=== PATIENT | male | born 1990 | race African-American/Black ===

== ENCOUNTER 2018-08-14 02:27 | Emergency (ER) | payer SELFPAY ==
[~2018-08-14] VITALS: Ht 175.3 cm; Wt 62.1 kg
[2018-08-14 02:31] VITALS: BP 160/75
[2018-08-14] MEDS ORDERED: IPRATRPIUM/ALBUTEROL 0.5/2.5MG 3 ML NEBU. NEB ONE (02:45)
--- NOTE | 2018-08-14 03:54 | RAD ---
Chest PA and lateral: Reason for examination: Cough The heart size is normal. Mediastinum is unremarkable. Lung powers are clear except for a calcified granuloma at in the mid right lung field. No acute bony abnormalities are seen. Impression: No acute cardiopulmonary disease. Electronically signed by: Mindy Kingston MD (08/14/2018 3:51 AM) [facility] [id number]
[2018-08-14] MEDS ORDERED: PROVENTIL HFA6.7 GM IH (04:08)
--- NOTE | 2018-08-14 04:08 | PHYS DOC ---
Past Medical History Past Medical History: Asthma Past Surgical History: No Surgical History Alcohol Use: None Drug Use: Marijuana Adult General Chief Complaint Chief Complaint: COUGH HPI HPI Patient is a 27-year-old male who presents with complaint of cough and wheezing that has been going on for the last couple of weeks. Patient states he has a history of asthma. He states that he was recently given a prescription for an albuterol inhaler but states that he lost it. He states that this morning the symptoms have gotten worse. He does indicate that his cough is been productive of clear sputum. He denies any fever. He also denies any chest pain. He states his symptoms are worse with exertion and out in the cold air. Review of Systems Review of Systems Constitutional: Denies fever or chills [] Respiratory: Positive cough and wheezing[] Cardiovascular: Denies chest pain[] Musculoskeletal: Denies back pain or joint pain [] Integument: Denies rash or skin lesions [] All other systems were reviewed and found to be within normal limits, except as documented in this note. Current Medications Current Medications Current Medications Medications (Trade) Dose Ordered Sig/Solitario Start Time Stop Time Status Last Admin Dose Admin Albuterol/ Ipratropium (Duoneb) 3 ml 1X ONCE 08/14/18 02:45 08/14/18 02:47 DC 08/14/18 02:52 3 ML Allergies Allergies Allergies Coded Allergies Type Severity Reaction Last Updated Verified No Known Drug Allergies 08/14/18 No Physical Exam Physical Exam Constitutional: Well developed, well nourished, no acute distress, non-toxic appearance. [] HENT: Normocephalic, atraumatic, bilateral external ears normal, oropharynx moist, no oral exudates, nose normal. [] Eyes: PERRLA, EOMI, conjunctiva normal, no discharge. [] Neck: Normal range of motion, no tenderness, supple, no stridor. [] Cardiovascular:Heart rate regular rhythm [] Lungs & Thorax: There are fine inspiratory and expiratory wheezes noted bilaterally[] Skin: Warm, dry, no erythema, no rash. [] Extremities: No tenderness, no cyanosis, no clubbing, ROM intact, no edema. [] Current Patient Data Vital Signs Vital Signs Date Time Temp Pulse Resp B/P (MAP) Pulse Ox O2 Delivery O2 Flow Rate FiO2 10/10/18 02:31 98.4 110 24 160/75 (103) 93 Room Air 98.4 EKG EKG [] Radiology/Procedures Radiology/Procedures [] Impressions: Chest x-ray demonstrates no acute process. Course & Med Decision Making Course & Med Decision Making Pertinent Labs and Imaging studies reviewed. (See chart for details) [] Dragon Disclaimer Dragon Disclaimer This electronic medical record was generated, in whole or in part, using a voice recognition dictation system. Departure Departure Impression: Primary Impression: Asthma exacerbation Disposition: HOME, SELF-CARE Condition: STABLE Referrals: NO PCP (PCP) Patient Instructions: Asthma, Adult Scripts Albuterol Sulfate (PROVENTIL HFA INHALER) 6.7 Gm Hfa.aer.ad 2 PUFF IH PRN Q4HRS PRN for FOR ASTHMA, #1 INHALER 0 Refills Prov: ROMANA LYNNE Jr., DO 08/14/18 Problem Qualifiers Primary Impression: Asthma exacerbation Asthma severity: unspecified severity Asthma persistence: unspecified Qualified Codes: J45.901 - Unspecified asthma with (acute) exacerbation ROMANA LYNNE Jr. DO Aug 14, 2018 04:08
== END 2018-08-14 04:50 | disposition home or self-care (01) ==
LOC: ER 02:27
DX: J45.901 Unspecified asthma with (acute) exacerbation (principal)
CPT/HCPCS: 71046; 94640; 99284; J7620

== ENCOUNTER 2018-09-06 10:34 | Emergency (ER) | payer SELFPAY ==
[~2018-09-06] VITALS: Ht 175.3 cm; Wt 59.0 kg
[~2018-09-06 10:34] MED LIST: PROVENTIL HFA6.7 GM IH
[2018-09-06 11:03] VITALS: BP 102/66
[2018-09-06] MEDS: SUMAtriptan SUCCINATE 25 MG TABLET PO ONE (11:30)
[2018-09-06] MEDS: metroNIDAZOLE 500 MG TABLET PO ONE (11:31)
[2018-09-06] MEDS: AZITHROMYCIN 250 MG TABLET. PO ONE (11:31)
[2018-09-06 11:33] LABS: BILIRUBIN,URINE NEGATIVE (NEG); CLARITY,URINE CLEAR; COLOR,URINE YELLOW; NITRITE,URINE NEGATIVE (NEG); PH,URINE 6.5; PROTEIN,URINE NEGATIVE (NEG-TRACE)
[2018-09-06] MEDS: cefTRIAXone IM 250 MG VIAL IM ONE (11:33)
[2018-09-06 11:40] LABS: BACTERIA,URINE 0 /HPF (0-FEW); RBC,URINE 0 /HPF (0-2); SQUAMOUS EPITHELIAL CELL,UR FEW /LPF; WBC,URINE >40 /HPF (0-4)
[2018-09-06] MEDS ORDERED: SUMA50TA3 PO (11:44)
--- NOTE | 2018-09-06 11:44 | PHYS DOC ---
Past Medical History Past Medical History: Asthma Past Surgical History: No Surgical History Alcohol Use: None Drug Use: Marijuana Adult General Chief Complaint Chief Complaint: SEXUALLY TRANSMITTED DISEASE HPI HPI Patient is a 27 year old male with history of asthma who presents today concerned he could have an STD. He states he has had penile discharge for 2 days. Also complaining of 8 out of 10 generalized migraine headache for 2 days. Denies any photophobia nausea vomiting. Review of Systems Review of Systems Constitutional: Denies fever or chills [] Eyes: Denies change in visual acuity, redness, or eye pain [] HENT: Denies nasal congestion or sore throat [] Respiratory: Denies cough or shortness of breath [] Cardiovascular: No additional information not addressed in HPI [] GI: Denies abdominal pain, nausea, vomiting, bloody stools or diarrhea [] : Reports concern for STDs. Denies dysuria or hematuria [] Musculoskeletal: Denies back pain or joint pain [] Integument: Denies rash or skin lesions [] Neurologic: Reports headache, denies, focal weakness or sensory changes [] All other systems were reviewed and found to be within normal limits, except as documented in this note. Current Medications Current Medications Current Medications Medications (Trade) Dose Ordered Sig/Solitario Start Time Stop Time Status Last Admin Dose Admin Azithromycin (Zithromax) 1,000 mg 1X ONCE 09/06/18 11:15 09/06/18 11:19 DC 09/06/18 11:31 1,000 MG Ceftriaxone Sodium (Rocephin Im) 250 mg 1X ONCE 09/06/18 11:15 09/06/18 11:19 DC 09/06/18 11:33 250 MG Metronidazole (Flagyl) 2,000 mg 1X ONCE 09/06/18 11:15 09/06/18 11:19 DC 09/06/18 11:31 2,000 MG Sumatriptan Succinate (Imitrex) 25 mg 1X ONCE 09/06/18 11:30 09/06/18 11:31 DC 09/06/18 11:30 25 MG Allergies Allergies Allergies Coded Allergies Type Severity Reaction Last Updated Verified No Known Drug Allergies 08/14/18 No Physical Exam Physical Exam Constitutional: Well developed, well nourished, no acute distress, non-toxic appearance. [] HENT: Normocephalic, atraumatic, bilateral external ears normal, oropharynx moist, no oral exudates, nose normal. [] Eyes: PERRLA, EOMI, conjunctiva normal, no discharge. [] Neck: Normal range of motion, no tenderness, supple, no stridor. [] Cardiovascular:Heart rate regular rhythm, no murmur [] Lungs & Thorax: Bilateral breath sounds clear to auscultation [] Abdomen: Bowel sounds normal, soft, no tenderness, no masses, no pulsatile masses. [] Skin: Warm, dry, no erythema, no rash. [] Back: No tenderness, no CVA tenderness. [] Extremities: No tenderness, no cyanosis, no clubbing, ROM intact, no edema. [] Neurologic: Alert and oriented X 3, normal motor function, normal sensory function, no focal deficits noted. Cranial nerves II through XII intact Psychologic: Affect normal, judgement normal, mood normal. [] Current Patient Data Vital Signs Vital Signs Date Time Temp Pulse Resp B/P (MAP) Pulse Ox O2 Delivery O2 Flow Rate FiO2 09/06/18 11:03 98.1 70 16 102/66 (78) 98 Room Air 98.1 Lab Values Laboratory Tests Test 09/06/18 10:30 Urine Collection Type Unknown Urine Color Yellow Urine Clarity Clear Urine pH 6.5 Urine Specific [place] 1.025 Urine Protein Negative mg/dL (NEG-TRACE) Urine Glucose (UA) Negative mg/dL (NEG) Urine Ketones (Stick) Negative mg/dL (NEG) Urine Blood Negative (NEG) Urine Nitrite Negative (NEG) Urine Bilirubin Negative (NEG) Urine Urobilinogen Dipstick 1.0 mg/dL (0.2 mg/dL) Urine Leukocyte Esterase Moderate (NEG) Urine RBC 0 /HPF (0-2) Urine WBC >40 /HPF (0-4) Urine Squamous Epithelial Cells Few /LPF Urine Bacteria 0 /HPF (0-FEW) Urine Mucus Slight /LPF EKG EKG [] Radiology/Procedures Radiology/Procedures [] Course & Med Decision Making Course & Med Decision Making Pertinent Labs and Imaging studies reviewed. (See chart for details) This is a 27-year-old male patient presenting to the ED today with STD concern as well as a migraine headache. Has history of migraine headaches, nothing unusual about his headache today. Given Imitrex for the headache. Given Flagyl, Rocephin and azithromycin for STD treatment. Patient provided on STDs. Follow- up with the health department for further STD concerns or PCP. Discharged with Imitrex for the headache. Staff Physician Addendum: I was working in the ER during the course of this patient's visit. I was available for consultation as needed, but I was not directly involved in the care of this patient. Dragon Disclaimer Dragon Disclaimer This electronic medical record was generated, in whole or in part, using a voice recognition dictation system. Departure Departure Impression: Primary Impression: Migraine headache Additional Impression: Concern about STD in male without diagnosis Disposition: HOME, SELF-CARE Condition: STABLE Referrals: NO PCP (PCP) follow-up with the health department or your own doctor for further concerns Patient Instructions: Migraine Headache, [id number], Sexually Transmitted Disease Additional Instructions: You were treated prophylaxis for sexually transmitted diseases, do not have sex for 7 days. Use protection at all times. Contact all your partners, let them know you were treated for STDs and ask them to seek treatment too. Scripts Sumatriptan Succinate (IMITREX) 50 Mg Tablet 1 TAB PO UD, #9 TAB 0 Refills Prov: BLANCA LOMAS APRN 09/06/18 Problem Qualifiers Primary Impression: Migraine headache Migraine type: without aura Status migrainosus presence: without status migrainosus Intractability: not intractable Qualified Codes: G43.009 - Migraine without aura, not intractable, without status migrainosus BLANCA LOMAS APRN Sep 06, 2018 11:44 MADELAINE VERAS MD Sep 06, 2018 11:57
== END 2018-09-06 11:55 | disposition home or self-care (01) ==
LOC: ER 10:34
DX: G43.909 Migraine, unspecified, not intractable, without status migrainosus (principal); Z20.2 Contact with and (suspected) exposure to infections with a predominantly sexual mode of transmission; J45.909 Unspecified asthma, uncomplicated
CPT/HCPCS: 81001; 96372; 99284; J0696; Q0144; 87491; 87591